=== PATIENT | female | born 1965 | race Caucasian/White ===

== ENCOUNTER 2017-07-31 12:35 | Emergency (ER) | payer BC ==
[2017-07-31 13:32] LABS: #Basophils 0.1 thou/uL (0.0-0.2); #Eosinphils 0.2 thou/uL (0.0-0.7); #Lymphocytes 3.2 thou/uL (1.20-3.40); #Monocytes 0.4 thou/uL (0.11-0.59); #Neutrophils 7.5 thou/uL (1.40-6.50); %Basophils 0.7 % (0.0-1.0); %Eosinophils 1.9 % (0.0-10.0); %Lymphocytes 28.1 % (21.0-51.0); %Monocytes 3.7 % (0.0-10.0); Mean Platelet Volume 7.6 fL (7.4-10.4); Red Blood Cell (RBC) Count 5.04 mill/uL (4.20-5.40); White Blood Cell (WBC) Count 11.4 thou/uL (4.8-10.8)
[2017-07-31 13:59] LABS: ALT (SGPT) 10 U/L (8-55); AST (SGOT) 12 U/L (5-34); Alkaline Phosphatase 116 U/L (40-150); Anion Gap 12 mmol/L (10-20); BUN (Urea Nitrogen) 10 mg/dL (9.8-20.1); Bilirubin, Total 0.3 mg/dL (0.2-1.2); Calc. Creatinine Clearance 0 mL/min (70-130); Calcium 8.7 mg/dL (7.8-10.44); Carbon Dioxide 24 mmol/L (22-29); Chloride 104 mmol/L (98-107); Estimated GFR-MDRD 88; Lipase 20 U/L (8-78); Protein, Total 6.7 g/dL (6.0-8.3)
[2017-07-31 14:05] LABS: Bilirubin Negative (Negative); Blood, Urine Trace (Negative); Glucose, Urine (Dipstick) Negative (Negative); Ketone, Urine Negative (Negative); Nitrite Negative (Negative); Protein, Urine (Dipstick) Negative (Neg-Trace); Urobilinogen 0.2 mg/dL (0.2-1.0)
[2017-07-31 14:07] LABS: Bacteria/HPF 1+ HPF (None Seen); Hyaline Casts/LPF 0-3 HYALINE CAST LPF (0-3 Hyaline)
--- NOTE | 2017-07-31 14:22 | RAD ---
AP CHEST SUPINE AND UPRIGHT ABDOMEN: Date: 07-31-17 FINDINGS: The lungs are well aerated. No evidence of active intrathoracic disease seen. No evidence of effusion s, pneumonia or pneumothorax seen. Two views of the abdomen demonstrates abdominal gas pattern to be nonspecific. No evidence of obstruc tion or ileus seen. No dilated loops of bowel seen. Surgical clips seen in gallbladder fossa. IMPRESSION: Unremarkable AP chest and two views abdomen. POS: [facility]
== END 2017-07-31 14:49 | disposition home or self-care (01) ==
LOC: ERS 12:35
DX: R10.9 Unspecified abdominal pain (principal); E11.9 Type 2 diabetes mellitus without complications; E03.9 Hypothyroidism, unspecified; E78.5 Hyperlipidemia, unspecified; J44.9 Chronic obstructive pulmonary disease, unspecified; I10 Essential (primary) hypertension; Z85.3 Personal history of malignant neoplasm of breast; F41.9 Anxiety disorder, unspecified; F32.9 Major depressive disorder, single episode, unspecified; Z87.891 Personal history of nicotine dependence
CPT/HCPCS: 36415; 74022; 80053; 81003; 81015; 83690; 84443; 85025

== ENCOUNTER 2017-11-06 09:22 | Outpatient (CLI) | payer BC | END 2017-11-06 09:23 | disposition home or self-care (01) | LOC: BICMAMMO 09:22 | DX: Z08 Encounter for follow-up examination after completed treatment for malignant neoplasm (principal); Z85.3 Personal history of malignant neoplasm of breast | CPT/HCPCS: 77066; G0279 ==

== ENCOUNTER 2018-10-15 11:30 | Outpatient (CLI) | payer BC ==
--- NOTE | 2018-10-15 12:49 | RAD ---
CHEST TWO VIEWS: 10/15/2018 PROVIDED CLINICAL HISTORY: Abnormal finding in lung field. COMPARISON: 12/27/2013 FINDINGS: Cardiac and mediastinal silhouette is within normal limits. Lungs appear radiographically clear. Th ere is no pleural fluid or pneumothorax apparent. IMPRESSION: No radiographic evidence for an acute cardiopulmonary process. POS: [facility]
--- NOTE | 2018-10-15 12:59 | RAD ---
RADIOGRAPH SINUSES THREE VIEWS: INDICATIONS: Abnormal finding in the lung field. FINDINGS: No air-fluid level is evident. The paranasal sinuses are clear. No acute osseous abnormality is [place] dent. The orbital rims are intact. The mandible is intact. The visualized skull appears intact. IMPRESSION: No appreciable paranasal sinus disease. POS: [facility]
== END 2018-10-15 11:31 | disposition home or self-care (01) ==
LOC: BICRAD 11:30
PROVIDERS: ATTEND Family Medicine
DX: R91.8 Other nonspecific abnormal finding of lung field (principal)
CPT/HCPCS: 70220; 71046

== ENCOUNTER 2018-11-07 09:42 | Outpatient (CLI) | payer BC | END 2018-11-07 09:43 | disposition home or self-care (01) | LOC: BICMAMMO 09:42 | PROVIDERS: ATTEND Family Medicine | DX: Z08 Encounter for follow-up examination after completed treatment for malignant neoplasm (principal); Z85.3 Personal history of malignant neoplasm of breast | CPT/HCPCS: 77066; G0279 ==

== ENCOUNTER 2018-11-14 10:13 | Outpatient (CLI) | payer BC ==
[~2018-11-14 10:13] MED LIST: ISOVUE-370 76%-LOCM 1 ML ONE
--- NOTE | 2018-11-14 12:05 | CT ---
PRE AND POST CONTRAST ENHANCED CT OF THE ABDOMEN: History: Right upper quadrant pain. Technique: Pre and post contrast enhanced CT of the abdomen obtained before and after administration of IV contrast. Oral contrast was given. FINDINGS: The lung bases are unremarkable. No evidence of free intraperitoneal air is seen. The liver and spleen are unremarkable. The patient has had a previous cholecystectomy. The pancreas is unremarkable. Adrenal glands are unremarkable. There is a small cyst in the midpole of the right kidney, unchanged since the previous exam from 2005 . IMPRESSION: Unremarkable pre and post contrast enhanced CT images of the abdomen. POS: [facility]
== END 2018-11-14 10:14 | disposition home or self-care (01) ==
LOC: BICCT 10:13
PROVIDERS: ATTEND Family Medicine
DX: R10.821 Right upper quadrant rebound abdominal tenderness (principal); R10.11 Right upper quadrant pain
CPT/HCPCS: 74170; Q9966

== ENCOUNTER 2019-11-10 14:28 | Outpatient (CLI) | payer BC ==
--- NOTE | 2019-11-11 08:16 | MMO ---
Bilateral MAMMO Bilat Screen [facility]. CLINICAL HISTORY: Patient is 54 years old and is seen for screening. The patient has no family history of breast cancer. The patient has a history of Ultrasound guided core biopsy procedure revealed invasive ductal right breast carcinoma in December,. The patient has a history of right Ultrasound Guided Core Biopsy in December, and right Lumpectomy in 2013 - malignant. VIEWS: The views performed were: bilateral craniocaudal with tomosynthesis and bilateral mediolateral oblique with tomosynthesis. FILMS COMPARED: The present examination has been compared to prior imaging studies performed at [facility] on 10/18/2015, 10/19/2016, 11/06/2017 and 11/07/2018. This study has been interpreted with the assistance of computer-aided detection. MAMMOGRAM FINDINGS: There are scattered fibroglandular densities. Finding 1: There are stable benign appearing calcifications seen in the right breast. Finding 2: There is a stable post-surgical scar seen in the right breast. There are no suspicious masses, suspicious calcifications, or new areas of architectural distortion. IMPRESSION: THERE IS NO MAMMOGRAPHIC EVIDENCE OF MALIGNANCY. A ROUTINE FOLLOW-UP MAMMOGRAM IN 1 YEAR IS RECOMMENDED. THE RESULTS OF THIS EXAM WERE SENT TO THE PATIENT. ACR BI-RADS Category 2 - Benign finding MAMMOGRAPHY NOTE: 1. A negative mammogram report should not delay a biopsy if a dominant of clinically suspicious mass is present. 2. Approximately 10% to 15% of breast cancers are not detected by mammography. 3. Adenosis and dense breasts may obscure an underlying neoplasm. Reported by: SHUBHAM DIAZ MD Electonically Signed: [id number]
== END 2019-11-10 14:29 | disposition home or self-care (01) ==
LOC: BICMAMMO 14:28
PROVIDERS: ATTEND Family Medicine
DX: Z12.31 Encounter for screening mammogram for malignant neoplasm of breast (principal); Z85.3 Personal history of malignant neoplasm of breast; Z98.890 Other specified postprocedural states
CPT/HCPCS: 77063; 77067